=== PATIENT | female | born 1970 | race Asian ===

== ENCOUNTER 2019-05-03 07:59 | Day surgery (SDC) | payer BC ==
[2019-04-26 14:09] VITALS: BMI 23.0
--- NOTE | 2019-04-26 14:13 | HP ---
Admitting History and Physical - Primary Care Physician PCP: Zhou Pop - Admission Chief Complaint: left breast cancer History of Present Illness: Patient is a 48 yo female who on screening mammo was noted to have asymmetry in the superior and lateral aspect of the the left breast. On ultrasound, this correlated with a left 1 oclock mass 3 cm from the nipple approx 1.07 cm . US guided core bx of this lesion was c/w invasive ductal ca ER and [place] positive Her 2 negative. 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 Patient is now presenting for a left breast WE, snbx poss andx with nl and lymphoscintogram. History Source: Patient Limitations to Obtaining History: No Limitations - Past Surgical History Past Surgical History: Yes: None Home Medications - Allergies Allergies/Adverse Reactions: Allergies Allergy/AdvReac Type Severity Reaction Status Date / Time No Known Drug Allergies Allergy Verified 04/26/19 14:01 Family Disease History - Family Disease History Family History: Unremarkable Review of Systems - Review of Systems Constitutional: reports: No Symptoms Cardiovascular: reports: No Symptoms Respiratory: reports: No Symptoms Physical Examination Constitutional: Yes: Well Nourished Breast(s): Yes: Other (Brest are symmetrical without skin changes or nipple discharge. The breast tissue is diffusely nodular and dense. No suspicious masses or adenopathy noted bilaterally.) Problem List - Problems (1) Breast cancer, left Code(s): C50.912 - MALIGNANT NEOPLASM OF UNSPECIFIED SITE OF LEFT FEMALE BREAST Qualifiers: Breast location: upper outer quadrant of breast Estrogen receptor status: positive Patient sex: female Qualified Code(s): C50.412 - Malignant neoplasm of upper-outer quadrant of left female breast; Z17.0 - Estrogen receptor positive status [ER+] Assessment/Plan Plan: Left breast WE with NL, snbx, possible andx with lymphoscintogram
[2019-05-03] MEDS ORDERED: PROMETHAZINE HCL 25 MG/1 ML VIAL IVPUSH PRN (12:56)
[2019-05-03] MEDS ORDERED: oxyCODONE HCL 5 MG TABLET PO PRN (12:56)
[2019-05-03] MEDS ORDERED: ACETAMINOPHEN 500 MG TABLET (FP) PO PRN (12:56)
[2019-05-03] MEDS ORDERED: ONDANSETRON 4 MG/2 ML VIAL IVPUSH PRN ×2 (12:56→15:32)
[2019-05-03] MEDS ORDERED: BUPIVACAINE HCL 0.25% 125 MG/50 ML VIAL ONE (12:57)
[2019-05-03] MEDS ORDERED: ISOSULFAN BLUE 10 MG/ML VIAL SQ ONE (12:57)
[2019-05-03] MEDS ORDERED: LACTATED RINGERS SOLUTION 1,000 ML IV SCH (13:00)
[2019-05-03] MEDS ORDERED: MIDAZOLAM HCL 2 MG/2 ML SINGLE DOSE VIAL ONE (13:06)
[2019-05-03] MEDS ORDERED: PROPOFOL 20 ML ONE (13:06)
[2019-05-03] MEDS ORDERED: LIDOCAINE HCL/PF 2% SDV 5ML VIAL ONE (13:07)
[2019-05-03] MEDS ORDERED: KETOROLAC TROMETHAMINE 30 MG/1 ML VIAL ONE (13:37)
[2019-05-03] MEDS ORDERED: DEXAMETHASONE SOD PHOSPHATE 4 MG/1 ML VIAL ONE (13:37)
[2019-05-03] MEDS ORDERED: ONDANSETRON 4 MG/2 ML VIAL ONE ×2 (13:37→15:54)
[2019-05-03] MEDS ORDERED: KETOROLAC TROMETHAMINE 30 MG/1 ML VIAL IVPUSH PRN (15:32)
[2019-05-03] MEDS ORDERED: DEXTROSE 5%-0.45% SALINE 1,000 ML IV SCH (15:45)
[2019-05-03] MEDS ORDERED: PROMETHAZINE HCL 25 MG/1 ML VIAL ONE (17:22)
[2019-05-03 19:00] VITALS: BP 103/69; PULSE 64; TEMP 98.6
== END 2019-05-03 19:00 | disposition home or self-care (01) ==
LOC: FASU 07:59
PROVIDERS: ATTEND Surgery Surgical Oncology
PROC: 0HBU0ZZ Excision of Left Breast, Open Approach (ICD-10-PCS; principal; 2019-05-03 13:55)
PROC: 0JX60ZC Transfer Chest Subcutaneous Tissue and Fascia with Skin, Subcutaneous Tissue and Fascia, Open Approach (ICD-10-PCS; 2019-05-03 13:55)
DX: C50.412 Malignant neoplasm of upper-outer quadrant of left female breast (principal); Z17.0 Estrogen receptor positive status [ER+]
CPT/HCPCS: 19281; 78195-TC; 84703; 94760; A9541